=== PATIENT | female | born 1995 | race Caucasian/White ===

== ENCOUNTER 2017-03-01 23:03 | Emergency (ER) | payer MEDICARE, OTHER | END 2017-03-01 23:52 | disposition home or self-care (01) | LOC: ER 23:03 | PROC: 3E0234Z Introduction of Serum, Toxoid and Vaccine into Muscle, Percutaneous Approach (ICD-10-PCS; principal; 2017-03-01) | DX: S00.80XA Unspecified superficial injury of other part of head, initial encounter (principal); W54.8XXA Other contact with dog, initial encounter; Y92.009 Unspecified place in unspecified non-institutional (private) residence as the place of occurrence of the external cause; Z77.22 Contact with and (suspected) exposure to environmental tobacco smoke (acute) (chronic); Z23 Encounter for immunization | CPT/HCPCS: 90471; 90715; 99282-25; 99283 ==